=== PATIENT | female | born 1940 | race Caucasian/White ===

== ENCOUNTER → 2016-07-27 | Outpatient (CLI) | payer MEDICARE | LOC: MAMO 10:19 | DX: Z12.31 Encounter for screening mammogram for malignant neoplasm of breast (principal) | CPT/HCPCS: G0202 ==

== ENCOUNTER → 2021-02-23 | Outpatient (CLI) | payer MEDICARE ==
[~2021-02-23] MED LIST: AMLODIPINE BESYL5 MG PO; ATORVASTATIN CA20 MG PO; CLARITIN 10MG T10 MG PO; DIGOXIN125 MCG PO; ELIQUIS5 MG PO; HYDROCODON-ACE1 EAC4 PO; LEVOTHYROXINE125 MCG PO; METOPROLOL TAR100 MG PO; METOPROLOL TART50 MG PO; ZETIA10 MG PO
[2021-02-23 09:34] LABS: HEMOGLOBIN 15.9 gm/dl (12.3-15.3); RED BLOOD COUNT 5.29 M/UL (4.00-5.10)
== END ==
LOC: OPSV2 07:46
PROVIDERS: Orthopaedic Surgery
DX: Z01.818 Encounter for other preprocedural examination (principal); G56.02 Carpal tunnel syndrome, left upper limb
CPT/HCPCS: 80048; 85025; 93005

== ENCOUNTER → 2021-02-24 | Day surgery (SDC) | payer MEDICARE ==
[~2021-02-24] VITALS: Ht 167.6 cm; Wt 73.0 kg
== END | disposition home or self-care (01) ==
LOC: OR 05:11
DX: G56.02 Carpal tunnel syndrome, left upper limb (principal); I11.9 Hypertensive heart disease without heart failure; E78.5 Hyperlipidemia, unspecified; E07.9 Disorder of thyroid, unspecified; C43.9 Malignant melanoma of skin, unspecified; Z79.899 Other long term (current) drug therapy; Z88.8 Allergy status to other drugs, medicaments and biological substances; Z20.822 Contact with and (suspected) exposure to COVID-19; Z95.0 Presence of cardiac pacemaker
CPT/HCPCS: J0690; J1100; J2001; J2405; J2704; J3010; J7030; J7120